=== PATIENT | male | born 2000 | race Two or more races ===

== ENCOUNTER 2020-12-06 12:29 | Outpatient (REF) | payer MEDICAID, SELFPAY ==
[2020-12-06 14:02] LABS: COVID-19 Test Negative (Negative)
== END 2020-12-06 12:30 | disposition home or self-care (01) ==
LOC: HO.LAB 12:29
PROVIDERS: Visit Provider Internal Medicine
DX: Z20.822 Contact with and (suspected) exposure to COVID-19 (principal)
CPT/HCPCS: 36415; 87635; C9803